=== PATIENT | female | born 1960 | race Caucasian/White ===

== ENCOUNTER 2021-04-11 17:13 | Inpatient (IN) | payer MEDICAID, SELFPAY ==
[2021-04-11 17:34] VITALS: BP 129/83; PULSE 114; RESP 29; TEMP 36.4; O2SAT 94; BMI 30.2
--- NOTE | 2021-04-11 17:44 | XRR_ITS ---
PROCEDURE INFORMATION: Exam: XR Chest Exam date and time: 04/11/2021 5:44 PM Age: 60 years old Clinical indication: Shortness of breath; Additional info: SOB TECHNIQUE: Imaging protocol: XR of the chest. Views: 1 view. COMPARISON: No relevant prior studies available. FINDINGS: Lungs: Atelectasis and consolidation in the right lung base. The left lung is clear with shallow inspiration. Pleural spaces: Large right sub pulmonic pleural effusion. Heart/Mediastinum: Unremarkable. No cardiomegaly. Bones/joints: Unremarkable. XR/XR chest 1V portable [id number] IMPRESSION: 1. Large right sub pulmonic pleural effusion.
[2021-04-11 17:52] LABS: Basophils # 0.1 10^3/uL (0.0-0.1); Basophils % 0.9 %; Eosinophils # 0.2 10^3/uL (0.0-0.8); Eosinophils % 2.1 %; Hematocrit 37.2 % (37.0-47.0); Hemoglobin 11.8 g/dL (11.5-15.3); Lymphocytes # 1.1 10^3/uL (0.8-4.8); Lymphocytes % 10.6 %; Mean Corpuscular HGB Conc 31.7 g/dL (30.0-36.0); Mean Corpuscular Volume 81.9 fl (81-99); Mean Platelet Volume 9.4 fL (7.4-10.4); Monocytes # 1.1 10^3/uL (0.2-0.9); Monocytes % 10.9 %; Neutrophils # 7.84 10^3/uL (1.8-7.7); Nucleated Red Blood Cells % 0 %; Platelet Count 355 10^3/cmm (130-400); Red Blood Count 4.54 10^6/uL (4.1-5.3); White Blood Count 10.5 10^3/uL (4.0-10.0)
[2021-04-11 18:14] LABS: Alanine Aminotransferase 11 U/L (0-33); Albumin Level 2.8 g/dL (3.5-5.2); Aspartate Amino Transferase 34 U/L (0-32); Blood Urea Nitrogen 50 mg/dL (6-20); C Reactive Protein 140.6 mg/L (0.0-4.9); Carbon Dioxide 18 mmol/L (22-29); Chloride 89 mmol/L (98-107); Creatine Phosphokinase 47 U/L (26-192); Globulin 4.7 g/dL (1.3-4.6); Glucose 99 mg/dL (65-115); Lipase 31 U/L (13-60); Osmolality Calculated 279 mOsm/kg (285-295); Sodium 128 mmol/L (136-145); Total Bilirubin 2.7 mg/dL (0.15-1.2); Total Protein 7.5 g/dL (6.6-8.7)
[2021-04-11 18:29] VITALS: RESP 16
[2021-04-11] MEDS: fentaNYL 50 mcg/mL INJ 2mL 25 MCG IVP ×2 (18:29→21:32)
[2021-04-11 18:41] LABS: Ammonia 47 umol/L (11-51)
[2021-04-11 18:44] LABS: Alkaline Phosphatase 1401 IU/L (35-105)
--- NOTE | 2021-04-11 18:58 | USR_ITS ---
PROCEDURE INFORMATION: Exam: US Abdomen; Limited Exam date and time: 04/11/2021 6:58 PM Age: 60 years old Clinical indication: Abdominal pain; Tenderness; Right lower quadrant (rlq); Additional info: Ascites TECHNIQUE: Imaging protocol: US abdomen. Real time ultrasound with image documentation. Limited exam focused on the region of clinical interest. COMPARISON: No relevant prior studies available. FINDINGS: Intraperitoneal space: Massive anechoic ascites in all quadrants of the abdomen. US/US abdomen lmt fluid [id number] IMPRESSION: 1. Massive ascites.
--- NOTE | 2021-04-11 21:37 | PC.NURSE ---
Repositioned for comfort; given ice chips; ok per MD
[2021-04-11 22:06] VITALS: BP 98/59; PULSE 88; RESP 16; O2SAT 95
--- NOTE | 2021-04-11 22:56 | ED_ITS ---
HPI - General Adult General: Chief complaint: General Medical Stated complaint: SWELLING ALL OVER, LIVER MASS Time Seen by Provider: 04/11/21 17:40 Source: patient, family and RN notes reviewed Mode of arrival: wheelchair Limitations: physical limitation History of Present Illness: HPI narrative: This 60-year-old female patient was brought into the emergency department for evaluation. Patient is originally from [facility] and was on her way back home from [place]. She had driven to [place] a few days ago on vacation with her grandchildren. There was significant difficulty getting the patient from the wheelchair into the bed in her room. She had a lot of pain and discomfort. Her daughter eventually came and added to her history. According to the patient she has been having increasing leg and abdominal swelling for about 7 weeks. She is being worked up by her primary care provider who said she has a spot on her liver. I asked the patient and she said she has not been tested for hepatitis B or C, she has no history of significant alcohol consumption. The patient endorses orthopnea and says she is unable to breathe when she lays down and has to sleep sitting up. The patient looks chronically ill and has lost more than 100 pounds. Onset (ago): week(s) (7) Location: abdomen and lower extremity Associated symptoms: Reports dyspnea, malaise and short of breath; Deny chest pain, confusion, cough, diaphoresis, decreased appetite, fevers/chills, headache(s), nausea, rash, palpitations, seizures, syncope, vomiting or weakness Review of Systems General: Reports: 10 or more systems reviewed and unremarkable except in HPI and below Const: Reports: malaise; Denies: diaphoresis Card: Denies: chest pain, palpitations or syncope Resp: Reports: dyspnea GI: Denies: nausea or vomiting Skin/Breast: Denies: rash Neuro: Denies: headache(s) or confusion Physical Exam Const: COMMON NORMALS: patient oriented x3, no limitations, alert and well nourished EXAM LIMITATIONS: physical limitations GENERAL APPEARANCE: in distress, anxious, ill appearing (Chronically ill looking) and appears older than stated age; not comfortable NUTRITIONAL APPEARANCE: cachectic HENMT: COMMON NORMALS: normocephalic, atraumatic and moist oral mucous membranes HEAD & SCALP: normocephalic and atraumatic Eye: COMMON NORMALS: Equal, round and reactive pupils present, EOMs intact bilaterally, conjunctivae normal and no scleral icterus CONJUNCTIVA: Yes conjunctivae normal PUPIL: Yes Equal, round and reactive pupils present Neck/C-Spine: COMMON NORMALS: no meningeal signs and no JVD Resp: COMMON NORMALS: normal respiratory effort, No retractions, No use of accessory muscles, clear to auscultation bilaterally and percussion normal AUSCULTATION: clear to auscultation bilaterally PERCUSSION: percussion normal Cardio: COMMON NORMALS: no JVD, regular rhythm, S1 normal heart sound present, S2 normal heart sound present, No gallops present (Cardio), No clicks present (Cardio), No murmurs present (Cardio), No rub (Cardio) and Peripheral pulses 2+ throughout RATE: tachycardic RHYTHM: regular rhythm HEART SOUNDS: S1 normal heart sound present and S2 normal heart sound present PERIPHERAL PULSES: Peripheral pulses 2+ throughout GI: COMMON NORMALS: non-tender, no masses and no bruits INSPECTION: Yes Abdominal wall edema, Yes Anasarca and Yes abdominal distension PALPATION: Yes Firmness to palpation present (GI), Yes Tenderness to palpation present (GI) (generalized), No Guarding due to palpation present (GI), Yes Ascites present and No Rebound tenderness present PERCUSSION: dullness to percussion Extremity: COMMON NORMALS: normal to inspection, full ROM, capillary refill normal and no calf tenderness GENERAL: Yes edema (4+ bilaterally) Neuro: COMMON NORMALS: patient oriented x3 SENSORIUM/ORIENTATION: Yes alert MENINGEAL SIGNS: Yes no meningeal signs Skin: COMMON NORMALS: no rashes or lesions noted, no wounds, turgor normal, no jaundice, no petechiae and no mottling GENERAL SKIN EXAM: no rashes or lesions noted and turgor normal Procedures Paracentesis Time Out Performed: Yes Local Anesthetic: lidocaine 1% Amount of anesthesia used (mL): 5 Fluid: clear and other (peter colored) Post Procedure Exam: awake, alert, normal BP, normal HR and normal SpO2 Patient Tolerated Procedure: well Complications: none Course Consultations: Consultation #1: Discussed the patient with Dr. Munoz, hospitalist and she kindly accepted the patient to her service. Time: 20:16 Vital Signs: Vital signs: Vital Signs Temperature 97.5 F L 04/11/21 17:34 Pulse Rate 90 04/11/21 23:11 Respiratory Rate 16 04/11/21 23:11 Blood Pressure 120/71 04/11/21 23:11 Pulse Oximetry 95 04/11/21 23:11 MDM - General Adult MDM Narrative: Medical decision making narrative: 60-year-old female patient who presents to the emergency department with anasarca, massive ascites, significant pedal edema. On observing this patient she is chronically ill looking, cachectic, and has a look of metastatic disease. She was pretty uncomfortable, is in a lot of pain and is having trouble breathing. Chest x-ray shows large right-sided pleural effusion, and ultrasound showed massive ascites. An abdominal paracentesis was done by me and we drained 2 L of clear yellowish ascitic fluid. 2 L were taken out because she has never had the paracentesis done before, blood pressure was low normal and she had hypoalbuminemia. So small volume paracentesis done. She will be admitted to the hospital for a thoracocentesis for the large pleural effusion to see if she obtains comfort. The patient would like to be discharged home tomorrow so she can follow-up locally with her primary care provider. I had an extensive conversation with the patient's daughter informing her that the patient appears to be very ill and there is a high probability that the patient has not got much longer to leave. The patient is very anxious and is not ready to hear how sick she is. Just asking her about her CODE STATUS made her go into a panic attack saying she does not like to think about it and it is making her scared. She is a full code. She remained stable in the ED before and after the paracentesis. With her renal function, there is concern for hepatorenal syndrome. Medical Records: Attestation: I reviewed the patient's medical records. Lab Data: Attestation: I reviewed the patient's lab results. Labs: Lab Results 04/11/21 04/11/21 04/11/21 Range/Units 17:41 17:41 17:41 WBC 10.5 H (4.0-10.0) 10^3/ uL RBC 4.54 (4.1-5.3) 10^6/u L Hgb 11.8 (11.5-15.3) g/dL Hct 37.2 (37.0-47.0) % MCV 81.9 (81-99) fl MCH 26.0 L (28.0-34.0) pg MCHC 31.7 (30.0-36.0) g/dL RDW 19.0 H (12.1-15.1) % Plt Count 355 (130-400) 10^3/c mm MPV 9.4 (7.4-10.4) fL Neut % (Auto) 75.0 % Lymph % (Auto) 10.6 % [place] % (Auto) 10.9 % Eos % (Auto) 2.1 % Baso % (Auto) 0.9 % Neut # (Auto) 7.84 H (1.8-7.7) 10^3/u L Lymph # (Auto) 1.1 (0.8-4.8) 10^3/u L [place] # (Auto) 1.1 H (0.2-0.9) 10^3/u L Eos # (Auto) 0.2 (0.0-0.8) 10^3/u L Baso # (Auto) 0.1 (0.0-0.1) 10^3/u L Nucleated RBC % (a uto) 0 % Nucleated RBCs # 0.0 /100WBC PT 14.60 (12.1-14.9) SECO NDS INR 1.10 (0.8-1.2) Sodium 128 L (136-145) mmol/L Potassium 4.0 (3.5-5.1) mmol/L Chloride 89 L (98-107) mmol/L Carbon Dioxide 18 L (22-29) mmol/L Anion Gap 25.0 H (5-19) BUN 50 H (6-20) mg/dL Creatinine 2.7 H (0.5-0.9) mg/dL GFR Calculation 18.0 L (90-130) mL/min Glucose 99 (65-115) mg/dL Calculated Osmolal ity 279 L (285-295) mOsm/k g Calcium 8.0 L (8.5-10.5) mg/dL Total Bilirubin 2.7 H (0.15-1.2) mg/dL AST 34 H (0-32) U/L ALT 11 (0-33) U/L Alkaline Phosphata se 1401 H* (35-105) IU/L Ammonia (11-51) umol/L Creatine Kinase 47 (26-192) U/L C-Reactive Protein 140.6 H (0.0-4.9) mg/L Total Protein 7.5 (6.6-8.7) g/dL Albumin 2.8 L (3.5-5.2) g/dL Globulin 4.7 H (1.3-4.6) g/dL Lipase 31 (13-60) U/L 04/11/21 Range/Units 17:41 WBC (4.0-10.0) 10^3/ uL RBC (4.1-5.3) 10^6/u L Hgb (11.5-15.3) g/dL Hct (37.0-47.0) % MCV (81-99) fl MCH (28.0-34.0) pg MCHC (30.0-36.0) g/dL RDW (12.1-15.1) % Plt Count (130-400) 10^3/c mm MPV (7.4-10.4) fL Neut % (Auto) % Lymph % (Auto) % [place] % (Auto) % Eos % (Auto) % Baso % (Auto) % Neut # (Auto) (1.8-7.7) 10^3/u L Lymph # (Auto) (0.8-4.8) 10^3/u L [place] # (Auto) (0.2-0.9) 10^3/u L Eos # (Auto) (0.0-0.8) 10^3/u L Baso # (Auto) (0.0-0.1) 10^3/u L Nucleated RBC % (a uto) % Nucleated RBCs # /100WBC PT (12.1-14.9) SECO NDS INR (0.8-1.2) Sodium (136-145) mmol/L Potassium (3.5-5.1) mmol/L Chloride (98-107) mmol/L Carbon Dioxide (22-29) mmol/L Anion Gap (5-19) BUN (6-20) mg/dL Creatinine (0.5-0.9) mg/dL GFR Calculation (90-130) mL/min Glucose (65-115) mg/dL Calculated Osmolal ity (285-295) mOsm/k g Calcium (8.5-10.5) mg/dL Total Bilirubin (0.15-1.2) mg/dL AST (0-32) U/L ALT (0-33) U/L Alkaline Phosphata se (35-105) IU/L Ammonia 47 (11-51) umol/L Creatine Kinase (26-192) U/L C-Reactive Protein (0.0-4.9) mg/L Total Protein (6.6-8.7) g/dL Albumin (3.5-5.2) g/dL Globulin (1.3-4.6) g/dL Lipase (13-60) U/L Imaging Data^: US: Attestation: I personally reviewed and interpreted this imaging study as follows: Radiologist's impression: [address] [address]Hkrnkpzyhn ReportSigned Patient: Dandy Roberts #: [id number]: [id number]#:[id number]/Sex: 60 / FADM Date: 04/11/21Loc: ERRoom/Bed:Attending Dr: Ordering Provider/Ordering MD: Juan Ramon Ibarra MD, [facility] [place] Date of Service: 04/11/21 Procedure(s): US abdomen lmt fluid [id number] Accession Number(s): [id number] Report Number: [id number] PROCEDURE INFORMATION: Exam: US Abdomen; Limited Exam date and time: 04/11/2021 6:58 PM Age: 60 years old Clinical indication: Abdominal pain; Tenderness; Right lower quadrant (rlq); Additional info: Ascites TECHNIQUE: Imaging protocol: US abdomen. Real time ultrasound with image documentation. Limited exam focused on the region of clinical interest. COMPARISON: No relevant prior studies available. FINDINGS: Intraperitoneal space: Massive anechoic ascites in all quadrants of the abdomen. US/US abdomen lmt fluid [id number] IMPRESSION: 1. Massive ascites. Dictated By:Silvia Villegased By:Sara Villegas Date/Time:04/11/21 2033DD/ 31 CXR: Attestation: I personally reviewed and interpreted this imaging study as follows: Radiologist's impression: [id number] [place], [place] [address]ETfg ReportSigned Patient: Dandy Roberts #: [id number]: [id number]#:[id number]/Sex: 60 / FADM Date: 04/11/21Loc: ERRoom/Bed:Attending Dr: Ordering Provider/Ordering MD: Juan Ramon Ibarra MD, [facility] [place] Date of Service: 04/11/21 Procedure(s): XR chest 1V portable [id number] Accession Number(s): [id number] Report Number: [id number] PROCEDURE INFORMATION: Exam: XR Chest Exam date and time: 04/11/2021 5:44 PM Age: 60 years old Clinical indication: Shortness of breath; Additional info: SOB TECHNIQUE: Imaging protocol: XR of the chest. Views: 1 view. COMPARISON: No relevant prior studies available. FINDINGS: Lungs: Atelectasis and consolidation in the right lung base. The left lung is clear with shallow inspiration. Pleural spaces: Large right sub pulmonic pleural effusion. Heart/Mediastinum: Unremarkable. No cardiomegaly. Bones/joints: Unremarkable. XR/XR chest 1V portable [id number] IMPRESSION: 1. Large right sub pulmonic pleural effusion. Dictated By:Sara Villegas By:Sara Villegas Date/Time:04/11/211837DD/ 36 EKG Data^: EKG 1: Attestation: I personally reviewed and interpreted this EKG as follows: EKG interpretation date: 04/11/21 EKG interpretation time: 17:42 Interpretation: Sinus tachycardia with short TN interval. Heart rate [address] changes. Computer generated interpretation: Chest X-Ray 04/11/21 17:44 IMPRESSION: 1. Large right sub pulmonic pleural effusion. Abdomen Ultrasound 04/11/21 18:58 IMPRESSION: 1. Massive ascites. Discharge Plan Discharge Patient Disposition: Admitted As Inpatient Admit Provider: Claudette Munoz Clinical Impression: Abdominal ascites, Pleural effusion, Anasarca Condition: Stable Coding Level of Care Code ED Needle Loom Weaver for Chg Fwd Exam Comprehensive
--- NOTE | 2021-04-11 23:02 | PC.NURSE ---
Pt switched over to hospital bed for comfort. Mild drainage noted at site of paracentesis. Transferred to room 1. VSS. Pt denies pain at this time. Daughter in room. Will continue to monitor.
--- NOTE | 2021-04-11 23:07 | PC.NURSE ---
Pt still unable to provide urine specimen; refuses straight cath, stating I cannot lie on my back. MD Ibarra notified.
[2021-04-11 23:11] VITALS: BP 120/71; PULSE 90; RESP 16; O2SAT 95
[2021-04-11] MEDS: ondansetron 2 mg/ML SDV 2 mL 4 MG IVP (23:53)
--- NOTE | 2021-04-11 23:53 | PC.NURSE ---
Assisted onto bedside toilet. Dressing changed at site of paracentesis.
[2021-04-12] VITALS (8 sets, daily range): BP systolic 94–128; BP diastolic 58–89; PULSE 86–105; RESP 12–18; TEMP 36.7; O2SAT 93–96
--- NOTE | 2021-04-12 | US_ITS ---
WS: [id number] ULTRASOUND-GUIDED THERAPEUTIC PARACENTESIS Procedure, risks, and complications have been explained to the patient. Consent is obtained. Dr. Reed requested that only 2000 cc be removed. Utilizing aseptic technique and 1% buffered lidocaine, a small dermatome was made through which a 5 F rench Yueh catheter was inserted. Approximately 2000 ml of clear peritoneal fluid was obtained witho ut difficulty. No complications encountered. US/US paracentesis abd w [id number] IMPRESSION: Uncomplicated paracentesis yielding 2000 ml of peritoneal fluid.
--- NOTE | 2021-04-12 00:27 | PC.NURSE ---
Changed bandage at site of paracentesis. Repositioned in bed for comfort.
[2021-04-12 00:58] LABS: Add Urine Microscopic? NO; Charge for UA Resulting for Rev
[2021-04-12 01:06] LABS: Bilirubin Urine 1+ (Negative); Blood Urine Neg (Negative); Glucose Urine UA Norm (Normal); Ketones Urine Negative (Negative); Leukocyte Esterase Urine Negative (Negative); Nitrate Urine Negative (Negative); Protein Urine Neg (Negative); Urine Appearance Clear (CLEAR); Urine Color Amber (Yellow); Urobilinogen Urine 4 mg/dL (Negative); pH Urine 5 (5-7)
--- NOTE | 2021-04-12 02:10 | PC.NURSE ---
Given food per Tammy. NPO after 0300 today.
--- NOTE | 2021-04-12 03:36 | PM.HP ---
Providers/Chief Complaint Admitting Physician: Claudette Munoz MD Primary Care Provider: Cezar Hogan MD Chief Complaint: SWELLING ALL OVER, LIVER MASS History of Present Illness Tabatha Roberts is a 60 year old female with no known significant past medical history, recently developing gross anasarca including lower extremity swelling and increasing abdominal distention over the past 7 to 8 weeks brought to the ER today while driving from [place] to [place] after she developed increased hip pain and increased weakness while being in the car. She pulled over, called EMS and was recommended to come into the emergency room for further evaluation. Patient states that she has been developing increasing swelling over the last 7 to 8 weeks, initially visited with her primary care provider is [employer] 5 weeks ago and was started on Lasix, however she did not tolerate this well. Resulted in hypokalemia and palpitations. Lasix was therefore discontinued and she is unwilling to try any further diuretics. Thereafter she followed with her primary care provider last week and had an ultrasound of her abdomen which revealed suspicious spot on her liver which is being thought to be malignancy. She is scheduled for a CT of the abdomen early next week. Patient lives near [place], was on a family vacation in [place] and developed increased weakness which prompted her to stop as above. Other notable symptoms include unintentional weight loss of 130 pounds over the past 1 year. Patient states she did not seek any medical attention for the same. She denies any complains of dysphagia or odynophagia but does endorse poor appetite. She is ill-appearing and cachectic today. She has had on and off diarrhea over the past 2 months, however prior to this did not notice any change in her bowel habits. No blood in stools. No abdominal pain or tenesmus. ROS positive for orthopnea, patient is unable to lie flat for the past several days and reports that this is why her CT scan has been delayed as well. Denies any past cardiac history. Denies history of CHF. Denies history of any renal abnormalities. States she has not had blood work since the onset of anasarca, creatinine today is noted to be 2.7 with unknown past baseline. She does have chronic right lower extremity edema after suffering a crush injury several years ago. In the ER today she underwent paracentesis with removal of 2 L of fluid. Further removal was not attempted due to borderline blood pressure of 99/62. There still remains significant abdominal distention. Chest x-ray is also showing right pleural effusion. Review of Systems General: Reports: 10 or more systems reviewed and unremarkable except in HPI and below Const: Denies: fever(s), chills or body aches Eyes: Denies: change in vision, blurry vision or photophobia ENMT: Reports: hoarseness; Denies: throat pain, enlarged tonsils, odynophagia or nasal congestion Card: Denies: chest pain, palpitations, irregular heart rhythm, edema, swelling of feet/ankles, lightheadedness, pre-syncope, dyspnea on exertion or orthopnea Resp: Denies: dyspnea, productive cough, non-productive cough, wheezing, stridor, pain on inspiration, change in phlegm color, hemoptysis or chest congestion GI: Denies: abdominal pain, nausea, vomiting, hematemesis, coffee ground emesis, dysphagia, heartburn, diarrhea, constipation, GI cramping, change in stool character, hematochezia or melena : Denies: flank pain, difficulty voiding, dysuria, urinary frequency, urinary urgency, urinary hesitancy or hematuria Musc: Denies: neck pain, back pain, extremity pain, joint swelling, joint warmth or deformity Neuro: Denies: headache(s), numbness in extremities, weakness in extremities, sensory changes, difficulty walking, frequent falls, dizziness, vertigo, behavioral changes, Slurred speech present or seizure-like activity Psych: Denies: anxiety, depression, suicidal ideation or homicidal ideation Endo: Denies: polyuria, polydipsia, tired all the time, cold intolerance or hot flashes Aneesh/Lymph: Denies: easy bruising or easy bleeding Medications/Allergies Home Medications Medication Instructions Recorded Confirmed Last Taken Type acetaminophen [Tylenol] 325 - 650 mg PO QID PRN 04/11/21 04/11/21 04/10/21 History ondansetron HCl 8 mg PO Q8H PRN 04/11/21 04/11/21 Unknown History tizanidine 4 mg PO Q8H PRN 04/11/21 04/11/21 04/11/21 History Allergies Allergy/AdvReac Type Severity Reaction Status Date / Time codeine Allergy ADR/ALGY-Pa Verified 04/11/21 17:40 lpitations furosemide Allergy ADR/ALGY-Pa Verified 04/11/21 17:40 lpitations Sulfa (Sulfonamide Allergy ADR/ALGY-Pa Verified 04/11/21 17:40 Antibiotics) lpitations Vitals/I&O/Wt Last Vital Signs Temp 97.5 F L 04/11/21 17:34 Pulse 89 04/12/21 02:12 Resp 16 04/12/21 02:12 BP 99/62 04/12/21 02:12 Pulse Ox 95 04/12/21 02:12 Weight last 48 hrs Weight 82.554 kg Physical Exam Narrative: EXAM NARRATIVE: GENERAL: Awake, alert, oriented, frail chronically ill-appearing lady HEENT: Normocephalic, atraumatic, PERRLA. [] CHEST: Clear to auscultation bilaterally. [] CVS: S1, S2 normal. No murmur, rubs, gallops. ] ABDOMEN: Grossly distended, fluid thrill present NEUROVASCULAR: Awake, alert. Power 5/5 all extremities. DTR+ [] EXTREMITIES: No gross anasarca, 3+ pitting edema extending up to upper thighs and also with massive ascites Data : 04/11/21 17:41 04/11/21 17:41 A&P Assessment and plan (1) Anasarca: Gross anasarca developing over the past 2 months Acutely worsened pain and weakness today which brought her to the emergency room. Per reported history, ultrasound of the abdomen performed with PCP has shown concerning lesions in the liver, suspicious for malignancy. CT of the abdomen is still pending. Together with unintentional 130 pound weight loss, concern of course for GI malignancy and metastatic disease. I have discussed extensively with the patient that without results of any imaging or blood work currently available, the differentials for anasarca remains broad. Further work-up would be warranted with echocardiogram to evaluate for CHF, CT imaging of the abdomen and pelvis to evaluate for malignancies including GI malignancy with metastatic disease to the liver versus liver primaries, possible liver cirrhosis, evaluation for portal hypertension and also evaluate for CKD. She is unwilling for a trial of diuretics at this time due to past poor experience with Lasix. Thus far she has undergone paracentesis with removal of 2 L of fluid, this has not provided significant relief so far since large amount of ascites is still remaining. We will use albumin overnight and attempt paracentesis again in the morning with IR. Counseled also that she may additionally need thoracentesis to provide significant relief from dyspnea in addition to paracentesis, however patient is hesitant to do both procedures at once. After to have recommended paracentesis 1st and then thoracentesis if no significant relief or reduction in size of right pleural effusion thereafter. Suspect that right pleural effusion may be a result of translocation of fluid across the diaphragm. At this time patient remains undecided if she wants to pursue above work-up as recommended after returning home near [place] versus staying at [facility] to complete work-up. For now she wants to undergo the paracentesis and if she feels well enough afterwards wishes to return home after symptomatic management. I am therefore holding off on ordering further testing at this time in accordance with patient's wishes. Status: Acute (2) Acute kidney injury: Pain the result of hepatorenal syndrome versus ATN from poor renal perfusion from extensive 3rd spacing. We will need abdominal imaging, however holding off for now as above. check urine lytes Status: Acute Attestations Medical Necessity Statement*: Observation admission for now, plan paracentesis in the morning Coding Level of Care Code Acute Senior Programmer for [facility] Monisha Diagnoses Anasarca R60.1 Acute kidney injury N17.9
[2021-04-12] MEDS: HYDROmorphone 1 mg/mL INJ 1 mL IVP (03:58)
[2021-04-12] MEDS: ondansetron 2 mg/ML SDV 2 mL 4 MG IVP ×2 (03:58→11:41)
--- NOTE | 2021-04-12 03:59 | PC.NURSE ---
Pt refused 0.25 of xanax. Pt states the pain medication will help me feel better so I do not want the xanax. Xanax label would not scan; unable to document in the MAR that the pt refused the xanax. The waste was witnessed by TIMMY Adrian.
--- NOTE | 2021-04-12 04:08 | PC.NURSE ---
Assisted onto bedside toilet. Then repositioned in bed. Denies further needs at this time.
[2021-04-12 04:27] LABS: Potassium, Radom Urine 31 mmol/L
[2021-04-12 04:28] LABS: Urine Random Sodium 11 mmol/L
[2021-04-12 04:29] LABS: Urine Random Chloride < 10 mmol/L
--- NOTE | 2021-04-12 05:00 | PC.NURSE ---
Pt vomiting after the dilaudid. She states that she has felt dizzy since it was administered. Dr. Munoz notified; she ordered reglan.
[2021-04-12 05:16] LABS: Mononuclear #, Pertinoneal Fl 0.002 10^3/uL; Polynuclear # Cells, Perit 0.004 10^3/uL
[2021-04-12 05:28] LABS: Appearance, Peritoneal Fluid Hazy (Clear); Color, Peritoneal Fluid Amber (Pale Yellow)
[2021-04-12 05:29] LABS: RBC Pertioneal Fluid 3 10^3/uL; WBC Peritoneal Fluid 6 /uL
[2021-04-12 05:37] LABS: Albumin Peritoneal Fluid 0.6 g/dL; Total Protein Peritoneal Fluid 1.1 g/dL; Triglycerides,Peritoneal Fluid 27 mg/dL
[2021-04-12 05:38] LABS: Amylase Peritoneal Fluid < 3 U/L (88-109)
--- NOTE | 2021-04-12 05:46 | PC.NURSE ---
Repositioned for comfort. Paracentesis site clean and dry after placement of colostomy bag, as requested by Dr. Munoz. Pt no longer vomiting and reports feeling much better after administration of Reglan. Daughter asleep in recliner in room. Pt denies further needs at this time. Call light within reach.
--- NOTE | 2021-04-12 06:30 | PC.NURSE ---
Pt ambulated to bathroom with this RN; minimal assistance needed. Repositioned for comfort. VSS. Lights turned down; pt denies further needs at this time.
--- NOTE | 2021-04-12 11:12 | CT_ITS ---
WS: [id number] CT HEAD NONCONTRAST HISTORY: evaluate for metastasis TECHNIQUE: Contiguous axial imaging performed through the brain in 2.5 mm imaging. Bone and soft tiss ue windows. Sagittal and coronal reformats reviewed. All CT scans at [facility] use at le ast one of these dose optimization techniques: automated exposure control; mA and/or kV adjustment pe r patient size (includes targeted exams where dose is matched to clinical indication); or iterative r econstruction. DLP: 836.61 mGy.cm COMPARISON: None available. No acute intracranial hemorrhage, midline shift or mass effect. Very mild atrophy. No sulcal effacement or loss of the khan-white matter differentiation. No midline shift. Ventricles: Normal size with no hydrocephalus. Paranasal sinuses: As visualized are clear. Mastoid air cells: Well pneumatized. Calvarium and scalp: Skull is intact with no soft tissue edema or swelling. CT/CT head wo con* [id number] IMPRESSION: 1. No midline shift or mass effect. 2. Mild cerebral atrophy and chronic ischemic disease.
--- NOTE | 2021-04-12 11:12 | CT_ITS ---
WS: [id number] CT CHEST, ABDOMEN AND PELVIS WITHOUT CONTRAST. HISTORY: Evaluate for metastatic disease. Hepatic failure. TECHNIQUE: Contiguous 5 mm axial imaging performed through the chest, abdomen and pelvis without IV c ontrast, oral contrast has not been provided. Coronal and sagittal reformats chest. Coronal and sagit beto reformats through the abdomen and pelvis. All CT scans at [facility] use at least one of these dose optimization techniques: automated exposure control; mA and/or kV adjustment per patie nt size (includes targeted exams where dose is matched to clinical indication); or iterative reconstr uction. CONTRAST: None DLP: 1560.81 mGy.cm COMPARISON: None available. Chest CT: Motion artifact. LEFT upper lobe 6 mm noncalcified pulmonary nodule. There is significant c ompression of the RIGHT lung due to a large layering RIGHT pleural effusion. Extensive soft tissue an asarca. This study is not adequate to evaluate for lymphadenopathy. Very mild atherosclerosis aorta. Heart appears at least mildly enlarged. Multinodular thyroid. Abdomen CT: Large amount of ascites throughout the abdomen. Liver is enlarged and heterogeneous. Ther e are multiple calcified and partially calcified masses within the liver. The liver is extensively in volved with changes of metastatic disease. Liver is enlarged also. Cannot exclude bile duct dilatatio n. Stones are likely within the gallbladder. Splenic granulomata. Spleen is slightly enlarged at 14 c m in length. Limited evaluation of the pancreas. No adrenal mass. Kidneys are not obstructed. There i s extensive anasarca and soft tissue infiltration within the mesentery. This soft tissue infiltration may be edema or omental caking. No GI tract obstruction. Pelvic CT: Large amount of fluid in the pelvis. Uterus is lobulated and contains a calcification whic h is exophytic and probably a fibroid. RIGHT adnexal mass measures 3.1 x 3.7 cm. Probably associated with the ovary. Not significantly enlarged. No large pelvic mass. Extensive anasarca. Small inguinal lymph nodes. No osseous destruction. Mixed lytic and sclerotic lesion in the proximal LEFT femur. Metastatic lesio n versus enchondroma. CT/CT chest abd pel wo con IMPRESSION: 1. Quality of this examination is significantly limited and compromised by mul tiple factors. 2. Large amount of ascites. 3. Enlarged liver with diffuse abnormality. Likely due to calcified metastatic lesions. Calcified liver metastases are typically seen with colorectal cancer or ovarian cancer. 4. Diffuse soft tissue anasarca. 5. Mild splenomegaly. 6. Large RIGHT pleural effusion. 7. Single LEFT upper lobe nodule at 6 mm. Cannot exclude metastatic site. 8. Fibroid uterus. 9. No enlarged pelvic masses. 10. Omental thickening may be edema from the soft tissue anasarca but carcinom atosis may appear similar. 11. This study is not adequate to exclude adenopathy or other metastatic sites .
[2021-04-12 11:47] LABS: Basophils # 0.1 10^3/uL (0.0-0.1); Basophils % 0.7 %; Eosinophils # 0.1 10^3/uL (0.0-0.8); Hematocrit 36.9 % (37.0-47.0); Hemoglobin 11.5 g/dL (11.5-15.3); Lymphocytes # 0.7 10^3/uL (0.8-4.8); Lymphocytes % 6.9 %; Mean Corpuscular HGB Conc 31.2 g/dL (30.0-36.0); Mean Corpuscular Hemoglobin 25.9 pg (28.0-34.0); Mean Corpuscular Volume 83.1 fl (81-99); Mean Platelet Volume 10.1 fL (7.4-10.4); Monocytes # 1.1 10^3/uL (0.2-0.9); Monocytes % 10.8 %; Neutrophils # 8.19 10^3/uL (1.8-7.7); Neutrophils % 80.2 %; Nucleated Red Blood Cells % 0 %; Platelet Count 335 10^3/cmm (130-400); Red Blood Count 4.44 10^6/uL (4.1-5.3); Red Cell Distribution Width 18.9 % (12.1-15.1); White Blood Count 10.2 10^3/uL (4.0-10.0)
[2021-04-12] MEDS: midodrine 5 mg TABLET 10 MG PO ×2 (11:53→21:12)
[2021-04-12] MEDS: metroNIDAZOLE IV 500 MG/100 ML PREMIX 100 MG IV (11:56)
[2021-04-12 11:58] LABS: INR 1.06 (0.8-1.2)
[2021-04-12 12:06] LABS: Ammonia 28 umol/L (11-51); Lactic Sepsis W/Reflex 1.7 mmol/L (0.5-2.2)
[2021-04-12 12:09] LABS: D Dimer 7.56 ug/mIFEU (0-0.59)
[2021-04-12 12:23] LABS: Alanine Aminotransferase 10 U/L (0-33); Anion Gap 24.1 (5-19); Aspartate Amino Transferase 33 U/L (0-32); Blood Urea Nitrogen 52 mg/dL (6-20); Calcium 8.3 mg/dL (8.5-10.5); Carbon Dioxide 20 mmol/L (22-29); Chloride 90 mmol/L (98-107); Gamma Glutamyl Transferase 419 U/L (5-36); Globulin 4.4 g/dL (1.3-4.6); Glomerular Filtration Rate 17.3 mL/min (90-130); Glucose 103 mg/dL (65-115); Lipase 23 U/L (13-60); Magnesium 2.2 mg/dL (1.7-2.3); Osmolality Calculated 284 mOsm/kg (285-295); Phosphorus 5.7 mg/dL (2.5-4.5); Potassium 4.1 mmol/L (3.5-5.1); Sodium 130 mmol/L (136-145); Total Bilirubin 2.7 mg/dL (0.15-1.2); Total Protein 7.4 g/dL (6.6-8.7)
[2021-04-12 12:26] LABS: Alkaline Phosphatase 1185 IU/L (35-105)
[2021-04-12 12:43] LABS: Hepatitis A Antibody IgM Non-Reactive (Nonreactive); Hepatitis B Core AB, Total Non-Reactive (Nonreactive); Hepatitis B Surface Antigen Non-Reactive (Nonreactive); Hepatitis C Virus Antibody Non-Reactive (Nonreactive)
[2021-04-12 12:45] LABS: Hepatitis B Surface AB < 3.5 (11.5-1000)
[2021-04-12 12:55] LABS: Cancer Antigen 19 9 2722 U/mL (0-35)
[2021-04-12] MEDS: ciprofloxacin 400 MG/200 ML PREMIX 200 MG IV (13:00)
[2021-04-12 13:02] LABS: Erythrocyte Sedimentation Rate 61 mm/hr (0-15)
[2021-04-12 13:22] LABS: HIV 1 & 2 Antibody Non-Reactive (Non-Reactiv); HIV 1 & 2 Antigen Non-Reactive (Non-Reactiv)
[2021-04-12] MEDS: morphine 4 mg/mL SDV 1 mL 2 MG IVP (14:25)
[2021-04-12] MEDS: LORazepam 2 mg/mL INJ 1 mL 0.5 MG IVP (14:35)
[2021-04-12 15:15] LABS: Urine Creatinine 51 mg/dL (28-217)
[2021-04-12 15:21] LABS: Urine Random Sodium 12 mmol/L
[2021-04-12 15:22] LABS: Urine Random Chloride < 10 mmol/L
[2021-04-12 16:31] LABS: Eosinophil Urine No Eosinophils Seen
--- NOTE | 2021-04-12 17:45 | PM.PN ---
Subjective Subjective: Interval history: Patient was seen this morning, she tells me that she does not have a history of strokes, no history of CAD, no history of CHF, no history of diabetes, she was in a relatively good state of health, when she started to notice abdominal swelling for the last few weeks, she drove down from [facility] to [facility] to see family, however on the way back to [place], she continues to have significant swelling, so that is why she is here in [place], no history of alcoholism, no history of hepatitis C, no history of smoking, denies any breast lumps or bumps, does have some history of breast cancer, has never had a colonoscopy, no personal history of cancers, she is saw her primary care physician, who ordered a sonogram of the liver, and found a mass in her liver, so we advised for her to have a CT scan, but she has not needed made it around to do the CT scan Vitals/I&O/Wt Last Vital Signs Temp 97.5 F L 04/11/21 17:34 Pulse 105 H 04/12/21 13:07 Resp 16 04/12/21 13:07 BP 125/81 04/12/21 13:07 Pulse Ox 95 04/12/21 13:07 04/12/21 04/12/21 04/12/21 06:59 14:59 22:59 Intake Total 267 / 267 133 / 400 Output Total 200 / 2200 Balance -200 / -2200 267 / 267 133 / 400 Weight last 48 hrs Weight 82.554 kg Physical Exam Const: COMMON NORMALS: no acute distress GENERAL APPEARANCE: ill appearing and frail appearing NUTRITIONAL APPEARANCE: thin ORIENTATION/CONSCIOUSNESS: Yes awake, Yes oriented to person, Yes oriented to place and Yes oriented to time Resp: COMMON NORMALS: normal respiratory effort, No retractions and No use of accessory muscles AUSCULTATION: diminished lung sounds on the right throughout Cardio: COMMON NORMALS: regular rate, regular rhythm, S1 normal heart sound present and S2 normal heart sound present RATE: regular rate RHYTHM: regular rhythm HEART SOUNDS: S1 normal heart sound present and S2 normal heart sound present GI: COMMON NORMALS: Soft to palpation INSPECTION: Yes abdominal distension and Yes Fluid wave present AUSCULTATION: Yes normoactive bowel sounds PALPATION: Yes Soft to palpation PERCUSSION: Fluid wave present OTHER: Large volume ascites Extremity: COMMON NORMALS: no pedal edema Neuro: SENSORIUM/ORIENTATION: Yes oriented to person, Yes oriented to place and Yes oriented to time Data : 04/12/21 11:30 04/12/21 11:30 Micro: Microbiology 04/12/21 11:20 Blood Culture - Preliminary Blood SPECIMEN COLLECTED 04/12/21 11:30 Blood Culture - Preliminary Blood SPECIMEN COLLECTED 04/12/21 04:50 Gram Stain - Final Ascites Fluid A&P Assessment and plan (1) Liver failure: -Acute onset liver failure, decompensated -With hyponatremia serum sodium 130 -Acute renal failure, creatinine 2.8 -Bili 2.7 -INR 1.06 -Alk phos 1185 -Albumin 3 -Large volume ascites seen on ultrasound -Hepatic hydrothorax, right pleural effusion -Hypotensive -Paracentesis, fluid PMNs less than 250, but still concern for SBP and/or possible infection Plan: -I advised patient the etiology of her acute liver failure is uncertain -Denies drinking alcohol -Hepatitis panel, HIV, rheumatologic work-up -Follow blood cultures, paracentesis cultures -Tumor marker CEA, CA 19, CA-125 -Given her acute ascites, will treat her presumptively for spontaneous bacterial peritonitis, Cipro and Flagyl -Albumin 25 g every 8 hours -Midodrine 10 mg every 8 hours -Consult radiology to tap her for another 2 L, I would avoid large volume paracentesis as she runs hypotensive, worsening of renal failure -She does have a large hepatic hydrothorax, not really requiring oxygen, for now I would hold off on a thoracocentesis again I am worried about worsening of her renal failure -Monitor renal function, will consider discussing case with nephrology if kidney function worsens tomorrow or urine output declines -Hold off on Lasix spironolactone given DANTE -Patient is agreeable to CT chest, abdomen, CT head -Bilateral lower extremity ultrasound for DVT Status: Acute (2) Anasarca: Status: Acute (3) Acute kidney injury: Pain the result of hepatorenal syndrome versus ATN from poor renal perfusion from extensive 3rd spacing. We will need abdominal imaging check urine lytes Status: Acute (4) Protein calorie malnutrition: Status: Acute (5) SBP (spontaneous bacterial peritonitis): Status: Acute (6) Ascites: Status: Acute Attestations Medical Necessity Statement*: Patient course hospitalization for acute decompensated liver failure, possible SBP Coding Level of Care Code Acute [employer] for [employer] Fwd Diagnoses Liver failure K72.90 Anasarca R60.1 Acute kidney injury N17.9 Protein calorie malnutrition E46 SBP (spontaneous bacterial peritonitis) K65.2 Ascites R18.8
[2021-04-12 18:17] LABS: CA 125 458.7 U/mL (0-35)
[2021-04-12] MEDS: fentaNYL 50 mcg/mL INJ 2mL 25 MCG IVP (19:27)
[2021-04-13] MEDS: metroNIDAZOLE IV 500 MG/100 ML PREMIX 100 MG IV ×3 (02:26→16:47)
[2021-04-13 03:55] VITALS: BP 99/63; PULSE 85; RESP 16; TEMP 36.5; O2SAT 96
[2021-04-13 06:11] LABS: Basophils # 0.1 10^3/uL (0.0-0.1); Basophils % 0.9 %; Eosinophils # 0.2 10^3/uL (0.0-0.8); Eosinophils % 2.4 %; Hematocrit 31.9 % (37.0-47.0); Lymphocytes # 0.6 10^3/uL (0.8-4.8); Lymphocytes % 7.3 %; Mean Corpuscular HGB Conc 31.3 g/dL (30.0-36.0); Mean Corpuscular Hemoglobin 26.3 pg (28.0-34.0); Mean Corpuscular Volume 83.9 fl (81-99); Mean Platelet Volume 9.1 fL (7.4-10.4); Monocytes # 0.9 10^3/uL (0.2-0.9); Monocytes % 12.1 %; Neutrophils # 5.87 10^3/uL (1.8-7.7); Nucleated Red Blood Cells % 0 %; Platelet Count 211 10^3/cmm (130-400); Red Cell Distribution Width 18.6 % (12.1-15.1); White Blood Count 7.6 10^3/uL (4.0-10.0)
[2021-04-13 06:32] LABS: Ammonia 32 umol/L (11-51)
[2021-04-13 07:06] LABS: INR 1.23 (0.8-1.2)
[2021-04-13 07:08] LABS: Alanine Aminotransferase 8 U/L (0-33); Albumin Level 2.9 g/dL (3.5-5.2); Alkaline Phosphatase 945 IU/L (35-105); Aspartate Amino Transferase 27 U/L (0-32); Blood Urea Nitrogen 43 mg/dL (6-20); C Reactive Protein 91.5 mg/L (0.0-4.9); Calcium 8.1 mg/dL (8.5-10.5); Carbon Dioxide 21 mmol/L (22-29); Chloride 96 mmol/L (98-107); Globulin 3.4 g/dL (1.3-4.6); Glomerular Filtration Rate 19.7 mL/min (90-130); Glucose 89 mg/dL (65-115); Magnesium 1.9 mg/dL (1.7-2.3); Osmolality Calculated 288 mOsm/kg (285-295); Phosphorus 5.2 mg/dL (2.5-4.5); Sodium 134 mmol/L (136-145); Total Bilirubin 2.3 mg/dL (0.15-1.2); Total Protein 6.3 g/dL (6.6-8.7)
[2021-04-13 07:43] VITALS: BP 96/60; PULSE 87; RESP 14; TEMP 36.7; O2SAT 97
[2021-04-13] MEDS: midodrine 5 mg TABLET 10 MG PO ×2 (08:57→14:00)
[2021-04-13 10:00] LABS: NT Pro B Type Natriuretic Pept 7987 pg/mL (0-125); Procalcitonin 1.11 ng/mL (0-0.5)
[2021-04-13 10:01] LABS: Lactate (Lactic Acid level) 1.5 mmol/L (0.5-2.2)
[2021-04-13 10:11] LABS: Creatine Phosphokinase 104 U/L (26-192)
[2021-04-13] MEDS: ciprofloxacin 400 MG/200 ML PREMIX 200 MG IV (10:18)
--- NOTE | 2021-04-13 10:42 | P.CONIM_ITS ---
Providers/Reason For Consult Consulting Physician/Specialty*: Nephrology Reason for Consult*: Acute Kidney Injury Attending Physician: Lawrence Reed MD Primary Care Provider: Cezar Hogan MD History of Present Illness History of Present Illness Thank you for consultation, today had the pleasure reviewing this very pleasant 60-year-old female in the presence of her daughter for evaluation of acute kidney injury. She is obviously a sick appearing cachectic lady with significant lower extremity edema and obvious abdominal distention with ascites. She presented with increasing weakness. She is out of town, here on a family vacation. Initial imaging has identified what appears to be calcified metastatic lesions in the liver, large amount of ascites, diffuse soft tissue anasarca, large right pleural effusion. She has received a paracentesis with 2 L volume removal. She reports she was given Lasix historically which caused palpitations and she did not like this. No known acute or chronic kidney disease. Admission serum creatinine was 2.7, this increased to 2.8 yesterday and is marginally improved to 2.5 today. She denies bladder outflow obstructive symptoms, urinary incontinence. We do not have historical data. No obstructive kidney anatomy seen on CT scan. Urinalysis performed yesterday demonstrate specific gravity 1.020, no protein, no blood, urine sodium of 12, urine creatinine 51. Hemodynamics soft since hospitalization. Patient reports no medical history, she does not see doctors, she has not had age-appropriate cancer screening either. She denies any recent exposure to potentially nephrotoxic substances prior to hospitalization including anti-inflammatory medications, PPIs etc. Review of Systems Narrative: ROS - 12 point review of systems completed per HPI and subjective assessment, this includes Constitutional: Weakness, fatigue Respiratory: No SOB on exertion, comfortable at rest CardioVasc: No chest pain, palpitations Gastrointestinal: No nausea, no vomiting Neurological: No seizures, no AMS Derm: No new rashes, lesions or wounds Immunological: No seasonal and no food allergies Meds/Allergies Home Medications and Allergies Home Medications Medication Instructions Recorded Confirmed Last Taken Type acetaminophen [Tylenol] 325 - 650 mg PO QID PRN 04/11/21 04/11/21 04/10/21 History ondansetron HCl 8 mg PO Q8H PRN 04/11/21 04/11/21 Unknown History tizanidine 4 mg PO Q8H PRN 04/11/21 04/11/21 04/11/21 History Allergies Allergy/AdvReac Type Severity Reaction Status Date / Time codeine Allergy ADR/ALGY-Pa Verified 04/11/21 17:40 lpitations furosemide Allergy ADR/ALGY-Pa Verified 04/11/21 17:40 lpitations Sulfa (Sulfonamide Allergy ADR/ALGY-Pa Verified 04/11/21 17:40 Antibiotics) lpitations Current Medications Current Medications Generic Name Dose Route Start Last Admin Trade Name Freq PRN Reason Stop Dose Admin Albumin Human 25 gm in 100 mls @ 60 mls/hr 04/12/21 09:30 04/13/21 07:09 Albumin IV Infused Q8H ANGELA Infusion Ciprofloxacin/Dextrose 400 mg in 200 mls @ 200 mls/hr 04/12/21 10:00 04/13/21 10:18 Cipro IV 200 mls/hr Q24H ANGELA Administration Protocol Metronidazole 500 mg in 100 mls @ 100 mls/hr 04/12/21 09:30 04/13/21 10:12 Flagyl Iv IV Infused Q8H ANGELA Infusion Protocol Midodrine 10 mg 04/12/21 09:30 04/13/21 08:57 Midodrine 5 Mg Tablet PO 10 mg TID ANGELA Administration Ondansetron HCl 4 mg 04/12/21 02:15 04/12/21 11:41 Ondansetron 2 Mg/Ml Sdv 2 Ml IVP 4 mg Q6H PRN Administration NAUSEA AND VOMITING Vitals/I&O/Wt Last Vital Signs Temp 98.0 F 04/13/21 07:43 Pulse 87 04/13/21 07:43 Resp 14 04/13/21 07:43 BP 96/60 04/13/21 07:43 Pulse Ox 97 04/13/21 07:43 04/12/21 04/13/21 04/13/21 22:59 06:59 14:59 Intake Total 333 / 600 420 / 420 Output Total 550 / 550 700 / 1250 200 / 200 Balance -217 / 50 -700 / -650 220 / 220 Weight last 48 hrs Weight 82.554 kg Physical Exam Narrative: EXAM NARRATIVE: Constitutional: Awake, comfortable HEENT: Wet mucosa, no jvp, non icteric Lungs: Bilaterally clear without discernible wheeze, rales in all lung zones CVS: S1 S2, no murmurs Abdo: Soft, BS ok,obvious ascites Ext 4: 2-3+ edema, peripheral perfusion with no cyanosis Neurological: Grossly non-focal Data Micro: Micro: Microbiology 04/12/21 04:50 Gram Stain - Final Ascites Fluid Body Fluid Culture - Preliminary 04/12/21 11:20 Blood Culture - Pr eliminary Blood SPECIMEN [facility] DESIREE 04/12/21 11:30 Blood Culture - Pr eliminary Blood SPECIMEN [facility] DESIREE A&P Additional A&P Information 1. Acute renal dysfunction We do not have any historic lab data, however, we can assume that a good proportion of the kidney damage that we are seeing is acute. Urinary sodium 12 consistent with prerenal azotemia as can be seen in hepatorenal syndrome. The other big exclusion is tumor lysis syndrome. Continue midodrine, albumin, will add octreotide IV hydration should be avoided given the anasarca, ascites etc., IV diuretics should also be avoided given soft hemodynamics, prerenal azotemia. Limited evaluation to include uric acid, CPK, TSH No other urinary studies or imaging is required Avoid usual nephrotoxic agents Strict I's and O's Dose medication for GFR less than 30 2. Metastatic liver lesions I appreciate the radiologist's input, calcified liver lesions consistent with ovarian or colonic carcinoma primary. Of note she has not had age-appropriate screening. At the end of the day she needs biopsy, possible transfer for definitive therapy Paracentesis for comfort, may need thoracentesis. Avoid diuretics as mentioned given renal dysfunction 3. Chemistry Hyponatremia seen on admission now improving, bicarb slightly decreased at 21, possible respiratory alkalosis versus metabolic acidosis Daughter at bedside, answered all of her questions to her contentment. Thank you for consultation, as always it is a pleasure to follow these cases with you Herrera Noguera MD Nephrology [phone] Patient seen and examined via telemedicine, with the assistance of the bedside RN > 25 min spent in evaluation and mgmt of patient Coding Level of Care Code Acute [employer]
[2021-04-13] MEDS: polyethylene glycol 3350 Pkt 17 gm PO (11:44)
[2021-04-13 12:00] VITALS: BP 126/81; PULSE 99; RESP 16; TEMP 36.6; O2SAT 93
[2021-04-13] MEDS: octreotide 100 mcg/mL SDV 200 MCG SUBCUT (13:07)
--- NOTE | 2021-04-13 14:04 | PM.TDS ---
Transfer Summary Providers Date of Admission: 04/12/21 18:02 Date of Discharge: 04/13/21 Attending Provider at Admission: Claudette Munoz MD Attending Provider at Transfer: Lawrence Reed MD Primary Care Provider: Cezar Hogan MD Anticipated Date of Transfer: Anticipated date of transfer: 04/13/21 Receiving Facility & Provider: Receiving Provider: [] Receiving facility: [] Diagnoses at Discharge Discharge Diagnosis (1) Liver failure: Status: Acute (2) Anasarca: Status: Acute (3) Acute kidney injury: Status: Acute (4) Protein calorie malnutrition: Status: Acute (5) SBP (spontaneous bacterial peritonitis): Status: Acute (6) Ascites: Status: Acute Reason for Visit Reason for Visit: SWELLING ALL OVER, LIVER MASS Hospital Course Hospital Course This is a 60-year-old female who has no significant past medical history is a resident of [facility], who was recently diagnosed to have a liver mass with ascites, had traveled to [facility], started to develop significant abdominal swelling and pain, decided to go back home to her daughters in [place] for further evaluation, however continues to have significant abdominal pain and swelling on the way back, that she came to [facility] for further evaluation Patient was admitted to [facility] for acute liver failure, acute renal failure likely hepatorenal syndrome secondary to likely metastatic cancer to the liver with unknown primary For her acute liver failure, INR 1.23, sodium 134, creatinine 2.8, bili 2.3, albumin 2.9 patient received paracentesis in the emergency room, PMNless than 250, pathology pending, roughly 2 L removed however patient developed hypotensive episodes, did not tolerate paracentesis well. She was started on midodrine, albumin, and her pressures improved, no pressors were required. She was also started on octreotide, most recent blood pressure 126/81. Currently she is on midodrine, octreotide, albumin, no fluids were given due to concerns of worsening ascites. She did have another 2 L of fluid removed, last creatinine is 2.5, continues to have good urine output. So far cultures have been unremarkable, but nonetheless patient was managed for spontaneous bacterial peritonitis, receiving Cipro and Flagyl. Patient clinically feels better, however continues to have significant ascites. Hepatitis panel was negative, HIV panel was negative. Hemoglobin is 10, no history of GI bleed, no bloody or black stools, no hematemesis, has never had a colonoscopy. Unfortunately we do not have GI service here [facility], and as I feel patient would be unsafe to discharge home given the distance to travel home, given her persistent ascites, intolerance to paracentesis, continued hypotensive episodes, I think she would be better served in a tertiary level care center closer to her home. Patient was given options for tertiary care centers, she chose [facility] in [facility] I spoke to Dr. Marrero, patient has been accepted. In terms of the work-up for her acute liver failure CT scan of the abdomen pelvis showed enlarged liver with diffuse abnormality, likely calcified metastatic lesions, diffuse soft tissue anasarca, single left upper lobe nodule, omental thickening possible carcinomatosis, right adnexal mass 3.1 x 3.7 cm, mixed lytic and sclerotic lesion in the proximal left femur. No history ovarian cancer, no history of breast cancer, no history of colon cancer, has not had a mammogram and a colonoscopy. Her CEA was 14 405, CA 19-9 was 2722, CA-125 458.7. I spoke to our oncology service, they recommended transfer to dedicated center with oncology team, GI service, should patient would require a liver biopsy, and appropriate management. I spoke to patient about her findings, she wants to pursue full treatment, full evaluation, she wants to remain a full code. Patient also has hepatorenal syndrome from ascites, she was managed with midodrine, albumin, octreotide, no fluids were given due to massive ascites, and concerns for worsening ascites, creatinine on transfer was 2.5, urine output 1 Patient also has hepatic hydrothorax, large right pleural effusion, not requiring any oxygen, not complaining of shortness of breath, but she will require a thoracocentesis at some point, however as above she suffers hypotensive episodes after the large fluid shifts. Physical Exam Const: COMMON NORMALS: no acute distress ORIENTATION/CONSCIOUSNESS: Yes awake, Yes oriented to person and Yes oriented to place Chest: COMMONS NORMALS: normal inspection of the chest Resp: COMMON NORMALS: normal respiratory effort, No retractions, No use of accessory muscles and clear to auscultation bilaterally AUSCULTATION: clear to auscultation bilaterally Cardio: COMMON NORMALS: regular rate, regular rhythm, S1 normal heart sound present and S2 normal heart sound present RATE: regular rate RHYTHM: regular rhythm HEART SOUNDS: S1 normal heart sound present and S2 normal heart sound present GI: COMMON NORMALS: Soft to palpation INSPECTION: Yes Abdominal wall edema, Yes Anasarca, Yes abdominal distension and Yes Fluid wave present AUSCULTATION: Yes normoactive bowel sounds PALPATION: Yes Soft to palpation and Yes Ascites present PERCUSSION: Fluid wave present Extremity: COMMON NORMALS: no pedal edema Neuro: SENSORIUM/ORIENTATION: Yes oriented to person and Yes oriented to place TS Data Data Completed and Pending: Completed Studies During Hospitalization Category Date Time Status CT chest abd pel wo con Routine Cat Scan 04/12/21 11:[address] head wo con* 7 0450 Routine Cat Scan 04/12/21 11:12 Completed XR chest 1V malorie ble 17950 Urgent Exams 04/11/21 17:44 [place] [id number] Routin e Ultrasound 04/13/21 17:53 [place] [address] Urgent Ultrasound 04/11/21 18:58 Com[place]acent[place] bd w 11554 Routine Ultrasound 04/12/21 Completed Pending at discharge Category Date Time Status FRANCE Profile Rheum atology Stat Lab 04/12/21 11:30 Received Ammonia AM LABS Lab 04/14/21 04:00 Ordered Ammonia AM LABS Lab 04/15/21 04:00 Ordered Blood Culture Sta t Lab 04/12/21 11:30 Results Body Fluid Cultur e & GS Routine Lab 04/12/21 04:50 Results C Reactive Protei n AM LABS Lab 04/14/21 04:00 Ordered C Reactive Protei n AM LABS Lab 04/15/21 04:00 Ordered Complete Blood Co unt w/Auto AM LABS Lab 04/14/21 04:00 Ordered Complete Blood Co unt w/Auto AM LABS Lab 04/15/21 04:00 Ordered Creatine Phosphok inase AM LABS Lab 04/14/21 04:00 Ordered Creatine Phosphok inase AM LABS Lab 04/15/21 04:00 Ordered Creatine Phosphok inase Routine Lab 04/13/21 10:45 Ordered Lactate (Lactic A charles level) AM LABS Lab 04/14/21 04:00 Ordered Lactate (Lactic A charles level) AM LABS Lab 04/15/21 04:00 Ordered Magnesium AM LABS Lab 04/14/21 04:00 Ordered Magnesium AM LABS Lab 04/15/21 04:00 Ordered NT Pro B Type Mayelin riuretic Pept QAM Lab 04/14/21 06:00 Ordered NT Pro B Type Mayelin riuretic Pept QAM Lab 04/15/21 06:00 Ordered Phosphorus AM LAB S Lab 04/14/21 04:00 Ordered Phosphorus AM LAB S Lab 04/15/21 04:00 Ordered Procalcitonin AM LABS Lab 04/14/21 04:00 Ordered Procalcitonin AM LABS Lab 04/15/21 04:00 Ordered Prothrombin Time INR AM LABS Lab 04/14/21 04:00 Ordered Prothrombin Time INR AM LABS Lab 04/15/21 04:00 Ordered SARS Covid-2 Anti gen Routine Lab 04/13/21 13:26 Uncollected Thyroid Stimulati ng Hormone Routine Lab 04/13/21 10:45 Ordered Uric Acid Routine Lab 04/13/21 10:45 Ordered Urine Culture Sta t Lab 04/12/21 14:24 Results Cytology [PTH] Ro utine Pth 04/12/21 04:50 Received Labs from last 24 hours 04/13/21 04/13/21 04/13/21 08:27 06:06 06:06 WBC RBC Hgb Hct MCV MCH MCHC RDW Plt Count MPV Neut % (Auto) Lymph % (Auto) Phillips % (Auto) Eos % (Auto) Baso % (Auto) Neut # (Auto) Lymph # (Auto) Phillips # (Auto) Eos # (Auto) Baso # (Auto) Nucleated RBC % (a uto) Nucleated RBCs # PT INR Sodium Potassium Chloride Carbon Dioxide Anion Gap BUN Creatinine GFR Calculation Glucose Calculated Osmolal ity Lactate 1.5 Calcium Phosphorus Magnesium Total Bilirubin AST ALT Alkaline Phosphata se Ammonia 32 Creatine Kinase 104 C-Reactive Protein NT-Pro-B Natriuret Pep 7987 H Total Protein Albumin Globulin CA 125 Antigen Procalcitonin 1.11 H Ur Eosinophil Smea r Urine Eosinophils Ur Random Sodium Ur Random Chloride Urine Creatinine 04/13/21 04/13/21 04/13/21 06:06 06:06 06:06 WBC 7.6 RBC 3.80 L Hgb 10.0 L Hct 31.9 L MCV 83.9 MCH 26.3 L MCHC 31.3 RDW 18.6 H Plt Count 211 D MPV 9.1 Neut % (Auto) 77.0 Lymph % (Auto) 7.3 Phillips % (Auto) 12.1 Eos % (Auto) 2.4 Baso % (Auto) 0.9 Neut # (Auto) 5.87 Lymph # (Auto) 0.6 L Phillips # (Auto) 0.9 Eos # (Auto) 0.2 Baso # (Auto) 0.1 Nucleated RBC % (a uto) 0 Nucleated RBCs # 0.0 PT 15.80 H INR 1.23 H Sodium 134 L Potassium 4.0 Chloride 96 L Carbon Dioxide 21 L Anion Gap 21.0 H BUN 43 H Creatinine 2.5 H GFR Calculation 19.7 L Glucose 89 Calculated Osmolal ity 288 Lactate Calcium 8.1 L Phosphorus 5.2 H Magnesium 1.9 Total Bilirubin 2.3 H AST 27 ALT 8 Alkaline Phosphata se 945 H Ammonia Creatine Kinase C-Reactive Protein 91.5 H NT-Pro-B Natriuret Pep Total Protein 6.3 L Albumin 2.9 L Globulin 3.4 CA 125 Antigen Procalcitonin Ur Eosinophil Smea r Urine Eosinophils Ur Random Sodium Ur Random Chloride Urine Creatinine 04/12/21 04/12/21 04/12/21 14:24 14:24 11:30 WBC RBC Hgb Hct MCV MCH MCHC RDW Plt Count MPV Neut % (Auto) Lymph % (Auto) Phillips % (Auto) Eos % (Auto) Baso % (Auto) Neut # (Auto) Lymph # (Auto) Phillips # (Auto) Eos # (Auto) Baso # (Auto) Nucleated RBC % (a uto) Nucleated RBCs # PT INR Sodium Potassium Chloride Carbon Dioxide Anion Gap BUN Creatinine GFR Calculation Glucose Calculated Osmolal ity Lactate Calcium Phosphorus Magnesium Total Bilirubin AST ALT Alkaline Phosphata se Ammonia Creatine Kinase C-Reactive Protein NT-Pro-B Natriuret Pep Total Protein Albumin Globulin CA 125 Antigen 458.7 H Procalcitonin Ur Eosinophil Smea r Not Reportable Urine Eosinophils No eosinophils se en Ur Random Sodium 12 Ur Random Chloride < 10 Urine Creatinine 51 Vitals: Last Vital Signs Temp 97.9 F 04/13/21 12:00 Pulse 99 04/13/21 12:00 Resp 16 04/13/21 12:00 BP 126/81 04/13/21 12:00 Pulse Ox 93 04/13/21 12:00 TS Medications Medications Home Medications acetaminophen [Tylenol] 325 - 650 mg PO QID PRN 04/11/21 [History Confirmed 04/11/21] ondansetron HCl 8 mg PO Q8H PRN 04/11/21 [History Confirmed 04/11/21] tizanidine 4 mg PO Q8H PRN 04/11/21 [History Confirmed 04/11/21] Active Medications Acetaminophen (Acetaminophen 325 Mg Tablet) 650 mg PO Q6H PRN PRN Reason: Mild/Mod Pain Or Temp >/= 101 Clonazepam (Clonazepam 1 Mg Tablet) 0.25 mg PO BID PRN PRN Reason: anxiety Albumin Human (Albumin) 25 gm in 100 mls @ 60 mls/hr IV Q8H [facility] Last Admin: 04/13/21 13:38 Dose: 60 mls/hr Documented by: Ciprofloxacin/Dextrose (Cipro) 400 mg in 200 mls @ 200 mls/hr IV Q24H ANGELA; Protocol Last Infusion: 04/13/21 11:34 Dose: Infused Documented by: Metronidazole (Flagyl Iv) 500 mg in 100 mls @ 100 mls/hr IV Q8H ANGELA; Protocol Last Infusion: 04/13/21 10:12 Dose: Infused Documented by: Lactulose (Lactulose Oral Liq 20 Gm/30 Ml Udc) 20 gm PO Q12H [facility] Last Admin: 04/13/21 11:58 Dose: Not Given Documented by: Metoclopramide HCl (Metoclopramide 5 Mg/Ml Sdv 2 Ml) 5 mg IVP Q6H PRN PRN Reason: NAUSEA AND VOMITING Midodrine (Midodrine 5 Mg Tablet) 10 mg PO TID [facility] Last Admin: 04/13/21 14:00 Dose: 10 mg Documented by: Ondansetron HCl (Ondansetron 2 Mg/Ml Sdv 2 Ml) 4 mg IVP Q6H PRN PRN Reason: NAUSEA AND VOMITING Last Admin: 04/12/21 11:41 Dose: 4 mg Documented by: Polyethylene Glycol (Polyethylene Glycol 3350 Pkt 17 Gm) 17 gm PO DAILY [facility] Last Admin: 04/13/21 11:44 Dose: 17 gm Documented by: Prochlorperazine (Prochlorperazine 10 Mg Tablet) 5 mg PO TID PRN PRN Reason: nausea/vomiting Discharge Plan Discharge Patient Disposition: Home Condition: Stable Prescriptions: No Action Tylenol 325 mg Tablet 325 - 650 mg PO QID PRN (Reason: Pain) RF: 0 tizanidine 4 mg Tablet 4 mg PO Q8H PRN (Reason: muscle spasms) RF: 0 ondansetron HCl 8 mg tablet 8 mg PO Q8H PRN (Reason: nausea/vomiting) RF: 0 Patient Instructions: Opioid Safety Transfer Attestations Time Spent in Transfer Care*: greater than 30 min Quality Metrics Clinical Quality Measures: During this hospital stay, did patient experience: None Coding Level of Care Code Acute Shot Examiner for Chg Fwd Diagnoses Liver failure K72.90 Anasarca R60.1 Acute kidney injury N17.9 Protein calorie malnutrition E46 SBP (spontaneous bacterial peritonitis) K65.2 Ascites R18.8
[2021-04-13 15:11] VITALS: BP 100/60; PULSE 82; RESP 16; TEMP 36.5; O2SAT 93
[2021-04-13] MEDS: pantoprazole 40 mg SDV IVP (15:28)
[2021-04-13] MEDS: sucralfate 1 gm/10 mL Oral Liq UDC PO (16:48)
[2021-04-13 17:12] LABS: SARS Covid-2 Antigen Negative (Negative)
--- NOTE | 2021-04-13 17:53 | USR_ITS ---
PROCEDURE INFORMATION: Exam: US Duplex Lower Extremity Veins, Bilateral Exam date and time: 04/13/2021 5:53 PM Age: 60 years old Clinical indication: Edema, localized; Lower extremity, bilateral; Additional info: Dvt TECHNIQUE: Imaging protocol: Real-time duplex ultrasound of the extremities with 2-D khan scale, color Doppler flow and spectral waveform analysis with image documentation. Complete exam focused on the bilateral lower extremity veins. COMPARISON: CT chest abd pel wo con 04/12/2021 2:38 PM FINDINGS: Right deep veins: Unremarkable. The common femoral, femoral, proximal profunda femoral and popliteal veins are patent without thrombus. Normal Doppler waveforms. Normal compressibility and/or augmentation response. Right superficial veins: Saphenofemoral junction is patent without thrombus. Left deep veins: Unremarkable. The common femoral, femoral, proximal profunda femoral and popliteal veins are patent without thrombus. Normal Doppler waveforms. Normal compressibility and/or augmentation response. Left superficial veins: Saphenofemoral junction is patent without thrombus. Soft tissues: There is bilateral lower extremity subcutaneous edema. US/CV venous duplex [facility] [id number] IMPRESSION: No evidence of deep vein thrombosis.
[2021-04-13 18:40] LABS: Creatine Phosphokinase 104 U/L (26-192); Thyroid Stimulating Hormone 1.54 uIU/mL (0.27-4.20); Uric Acid 14.6 mg/dL (2.4-5.7)
--- NOTE | 2021-04-13 18:45 | PC.NURSE ---
Report called to Darlene Hall RN at receiving facility. Albumin given early per physician and facility request as she will be in transit during the time it is due. Receiving facility requested IV remain in place.
[2021-04-13 18:46] VITALS: BP 99/51; PULSE 86; RESP 18; TEMP 36.8; O2SAT 92
--- NOTE | 2021-04-13 19:05 | PC.NURSE ---
Patient transferred out of facility by [facility] with all appropriate paperwork and belongings at this time.
[2021-04-13 19:38] VITALS: BP 99/51; PULSE 86; RESP 18; TEMP 36.8; O2SAT 92
[2021-04-15 11:44] LABS: THYROID PEROXIDASE ANTIBODIES 1 IU/mL (<9)
[2021-04-15 16:59] LABS: CENTROMERE B ANTIBODY <1.0 NEG AI (<1.0 NEG); COMPLEMENT COMPONENT C3C 128 mg/dL (83-193); COMPLEMENT COMPONENT C4C 19 mg/dL (15-57); COMPLEMENT, TOTAL (CH50) >60 U/mL (31-60); JO-1 ANTIBODY <1.0 NEG AI (<1.0 NEG); RNP ANTIBODY <1.0 NEG AI (<1.0 NEG); SCL-70 ANTIBODY <1.0 NEG AI (<1.0 NEG); SJOGREN'S ANTIBODY (SS-A) <1.0 NEG AI (<1.0 NEG); SM ANTIBODY <1.0 NEG AI (<1.0 NEG); SS-B <1.0 NEG AI (<1.0 NEG)
[2021-04-16 11:51] LABS: ANA SCREEN, IFA POSITIVE (NEGATIVE)
[2021-04-17 14:26] LABS: DNA AB (DS) CRITHIDIA,IFA NEGATIVE (NEGATIVE)
== END 2021-04-13 19:05 | disposition short-term general hospital (02) | DRG 441 ==
LOC: ER 22:04 → ER IP 23:10 → MEDSURG 04-12 18:35
PROVIDERS: Internal Medicine Nephrology; Admitting Provider Student in an Organized Health Care Education/Training Program; Emergency Provider Family Medicine; PCP Emergency Medicine Emergency Medical Services; Visit Provider Family Medicine
DX: K72.00 Acute and subacute hepatic failure without coma (principal); N17.0 Acute kidney failure with tubular necrosis; K65.2 Spontaneous bacterial peritonitis; K76.7 Hepatorenal syndrome; R18.8 Other ascites; E87.1 Hypo-osmolality and hyponatremia; E46 Unspecified protein-calorie malnutrition; C78.7 Secondary malignant neoplasm of liver and intrahepatic bile duct; K72.10 Chronic hepatic failure without coma; I95.9 Hypotension, unspecified; Z68.30 Body mass index [BMI] 30.0-30.9, adult; R91.8 Other nonspecific abnormal finding of lung field
CPT/HCPCS: 36415; 49082; 49083; 70450; 71045; 71250; 74176; 76705; 80053; 81003; 82042; 82140; 82150; 82248; 82378; 82436; 82550; 82570; 82945; 82977; 83605; 83690; 83735; 83880; 84100; 84133; 84145; 84157; 84300; 84443; 84478; 84550; 85025; 85378; 85610; 85651; 85999; 86140; 86160; 86162; 86235; 86255; 86301; 86304; 86376; 86705; 86706; 86709; 86803; 87040; 87070; 87075; 87086; 87205; 87340; 87426; 87806; 88112; 88305; 89050; 93970; 96365; 96366; 96372; 96375; 96376; 99291; C9113; G0378; J0744; J1170; J2060; J2270; J2354; J2405; J3010; P9047; S0030